=== PATIENT | female | born 1965 | race Caucasian/White ===

== ENCOUNTER 2017-07-11 12:34 | Outpatient (CLI) | payer OTHER ==
[2017-07-11 18:25] LABS: THYROID STIMULATING HORMONE 2.47 uIU/mL (0.34-5.60)
[2017-07-11 18:27] LABS: FREE T4 (FREE THYROXINE) 0.72 ng/dL (0.58-1.64)
[2017-07-11 18:32] LABS: FERRITIN 6.8 ng/mL (11.0-306.8)
== END 2017-07-11 12:35 | disposition home or self-care (01) ==
LOC: LAB.F 12:34
PROVIDERS: ATTEND Internal Medicine Endocrinology, Diabetes & Metabolism
DX: E03.8 Other specified hypothyroidism (principal); E04.9 Nontoxic goiter, unspecified; E61.9 Deficiency of nutrient element, unspecified; E61.1 Iron deficiency
CPT/HCPCS: 36415; 82310; 82607; 82728; 83970; 84439; 84443; 84481